=== PATIENT | male | born 1935 | race Caucasian/White ===

== ENCOUNTER 2020-06-11 10:09 | Emergency (ER) | payer OTHER, MEDICARE ==
[~2020-06-11] VITALS: Ht 180.3 cm; Wt 68.0 kg
[~2020-06-11 10:09] MED LIST: ASPIRIN EC325 M1 PO; CARDIZEM CD 18180 M3 PO; CITRACAL + D C1 EACH PO; FISH OIL 1,0001 EAC8 PO; FLOMAX0.4 MG PO; GLUCOPHAGE500 MG; HYTRIN 2MG CAPSU2 M1 PO; LANTUSSOLASTAR SUBQ; MULTIVITAMINS; NEURONTIN 300300 M1 PO; NIACIN 100MG T100 M1; NOVOLOG100 UNIT/1; VITAMIN D-32000 UNIT
[2020-06-11] MEDS ORDERED: PROSCAR 5MG TABL5 M1 PO (10:28)
[2020-06-11] MEDS ORDERED: ARICEPT10 M1 PO (10:28)
[2020-06-11] MEDS ORDERED: NORCO5 PO (12:17)
[2020-06-11 12:29] VITALS: BP 124/65
== END 2020-06-11 12:29 | disposition home or self-care (01) ==
LOC: M.ERS 10:09
DX: S92.322A Displaced fracture of second metatarsal bone, left foot, initial encounter for closed fracture (principal); S92.332A Displaced fracture of third metatarsal bone, left foot, initial encounter for closed fracture; E11.9 Type 2 diabetes mellitus without complications; N40.0 Benign prostatic hyperplasia without lower urinary tract symptoms; Z79.4 Long term (current) use of insulin; W22.8XXA Striking against or struck by other objects, initial encounter; Y93.89 Activity, other specified; Y92.89 Other specified places as the place of occurrence of the external cause; Y99.8 Other external cause status